=== PATIENT | female | born 1970 | race Caucasian/White ===

== ENCOUNTER 2017-05-11 18:56 | Emergency (ER) | payer OTHER ==
[~2017-05-11] VITALS: Ht 157.5 cm; Wt 105.7 kg
[~2017-05-11 18:56] MED LIST: 1ST CHOICE LAN1 EACH MC; COZAAR 50 MG TA50 M2 PO; GLYBURIDE 2.52.5 MG PO; LOSARTAN-HCTZ1 EAC2 PO; LOSARTAN-HCTZ1 EACH; METFORMIN HCL500 MG PO; OXYCODONE HCL 55 MG PO; TEST STRIPS1 EACH MC; [UNRECOGNIZED DRUG - OTHER] TP
[2017-05-11] MEDS ORDERED: NAPROSYN500 MG PO (19:47)
[2017-05-11] MEDS ORDERED: ROBAXIN500 MG PO (19:47)
[2017-05-11 20:02] VITALS: BP 119/71
== END 2017-05-11 20:02 | disposition home or self-care (01) ==
LOC: M.ERS 18:56
DX: S20.01XA Contusion of right breast, initial encounter (principal); I10 Essential (primary) hypertension; Z90.49 Acquired absence of other specified parts of digestive tract; V43.52XA Car driver injured in collision with other type car in traffic accident, initial encounter; Y93.89 Activity, other specified; Y92.89 Other specified places as the place of occurrence of the external cause; Y99.8 Other external cause status

== ENCOUNTER → 2017-07-09 | Outpatient (CLI) | payer OTHER ==
[~2017-07-09] MED LIST changes: +NAPROSYN500 MG PO; +ROBAXIN500 MG PO
== END ==
LOC: M.LAB 16:33 → M.MRI 17:30
DX: S09.90XS Unspecified injury of head, sequela (principal); H53.9 Unspecified visual disturbance; X58.XXXS Exposure to other specified factors, sequela

== ENCOUNTER → 2019-10-03 | Outpatient (CLI) | payer BC | LOC: M.LAB 09:28 | PROVIDERS: ATTEND Internal Medicine Gastroenterology | DX: Z01.818 Encounter for other preprocedural examination (principal); Z11.59 Encounter for screening for other viral diseases ==